=== PATIENT | female | born 1980 | race African-American/Black ===

== ENCOUNTER 2016-12-18 14:36 | Emergency (ER) | payer MEDICAID ==
[~2016-12-18] VITALS: Ht 170.2 cm; Wt 91.0 kg
[2016-12-18 14:38] VITALS: BP 156/62
== END 2016-12-18 19:30 | disposition left against medical advice (07) ==
LOC: ER 14:36
DX: F41.0 Panic disorder [episodic paroxysmal anxiety] (principal); Z53.21 Procedure and treatment not carried out due to patient leaving prior to being seen by health care provider

== ENCOUNTER 2019-04-06 02:05 | Emergency (ER) | payer SELFPAY ==
[~2019-04-06] VITALS: Ht 167.6 cm; Wt 87.0 kg
[2019-04-06] MEDS ORDERED: SODIUM CHLORIDE 0.9% 1,000 ML IV ONE (03:11)
[2019-04-06] MEDS ORDERED: ONDANSETRON HCL 4MG/2ML INJ IV ONE (03:15)
[2019-04-06] MEDS ORDERED: MORPHINE SULFATE 4 MG/ML CPJ (NOT FOR IM USE) IV ONE (03:15)
[2019-04-06 03:49] LABS: BASOPHILS % 0.4 % (0.0-2.0); EOSINOPHILS % 0.3 % (0.0-5.0); HEMATOCRIT. 30.9 % (36.0-48.0); HEMOGLOBIN. 9.6 g/dL (12.0-16.0); LYMPHOCYTES % 8.9 % (20.0-50.0); MEAN CORPUSCULAR HEMOGLOBIN 21.4 pg (28.0-32.0); MEAN CORPUSCULAR VOLUME 69.3 fL (81.0-99.0); MEAN PLATELET VOLUME 8.5 fl (7.4-10.4); MONOCYTES % 3.8 % (2.0-8.0); NEUTROPHILS % 86.6 % (40.0-76.0); PLATELET 392 x1000/uL (130-400); RED BLOOD CELL COUNT 4.46 mill/uL (4.2-5.4)
[2019-04-06 03:51] LABS: PLATELET ESTIMATE NORMAL
[2019-04-06 04:05] LABS: CHLORIDE 96 mEq/L (98-107)
[2019-04-06 04:30] VITALS: BP 136/75
== END 2019-04-06 05:59 | disposition left against medical advice (07) ==
LOC: ER 02:05
DX: D25.9 Leiomyoma of uterus, unspecified (principal)
CPT/HCPCS: 36415; 74177; 76856; 80053; 81025; 85025; 85610; 86850; 86900; 86901; 96374; 96375; 99284; J2270; J2405; J7030

== ENCOUNTER 2023-07-07 13:16 | Emergency (ER) | payer MEDICAID, OTHER ==
[~2023-07-07] VITALS: Ht 167.6 cm; Wt 91.0 kg
[2023-07-07 13:27] VITALS: O2SAT 99
[2023-07-07] MEDS ORDERED: IPRATROPIUM BROMIDE (0.02%) 0.5MG/2.5ML NEB HHN STA ×3 (14:05→14:06)
[2023-07-07] MEDS ORDERED: PREDNISONE 20MG TABLET PO STA (14:05)
[2023-07-07] MEDS ORDERED: ALBUTEROL (0.083%) 2.5MG/3ML NEB HHN STA ×3 (14:05→14:06)
[2023-07-07] MEDS ORDERED: POLYVINYL ALCOHOL OPHTH DROPS 15ML BOTHEYE SCH (15:30)
[2023-07-07] MEDS ORDERED: ALBU6.7H15 INH (16:41)
[2023-07-07] MEDS ORDERED: P50 MT (16:41)
[2023-07-07] MEDS ORDERED: ALBUTEROL (0.083%) 2.5MG/3ML NEB HHN NR (17:45)
[2023-07-07] MEDS ORDERED: PREDNISONE 20MG TABLET PO NR (17:45)
[2023-07-07] MEDS ORDERED: IPRATROPIUM BROMIDE (0.02%) 0.5MG/2.5ML NEB HHN NR (17:45)
[2023-07-07 19:50] VITALS: BP 118/78; PULSE 92; RESP 16; TEMP 98.5
== END 2023-07-07 19:52 | disposition home or self-care (01) ==
LOC: ER 13:53
DX: J45.901 Unspecified asthma with (acute) exacerbation (principal); I10 Essential (primary) hypertension; Z98.890 Other specified postprocedural states
CPT/HCPCS: 99285; J7512

== ENCOUNTER 2024-07-01 07:08 | Emergency (ER) | payer OTHER ==
[~2024-07-01] VITALS: Ht 167.6 cm; Wt 102.0 kg
[~2024-07-01 07:08] MED LIST: ALBU6.7H15 INH; ALBU90AE INH; NAPR-1176 MT; P50 MT
[2024-07-01 07:10] VITALS: O2SAT 100
[2024-07-01 08:00] VITALS: PULSE 77; RESP 16; TEMP 36.8; O2SAT 100
[2024-07-01] MEDS: ASPIRIN 81MG TABLET PO NR (08:08)
[2024-07-01] MEDS: CLOPIDOGREL 75MG TABLET PO NR (08:08)
[2024-07-01 08:15] VITALS: BP 214/122
[2024-07-01] MEDS: LABETALOL 5MG/ML 4ML INJ IV NR (08:15)
[2024-07-01 08:40] LABS: BASOPHILS % 0.8 % (0.0-2.0); EOSINOPHILS % 1.2 % (0.0-5.0); HEMOGLOBIN. 11.6 g/dL (12.0-16.0); LYMPHOCYTES % 33.1 % (20.0-50.0); MEAN CORPUSCULAR HEMOGLOBIN 32.1 pg (28.0-32.0); MEAN CORPUSCULAR HGB CONC 34.2 g/dL (31.0-37.0); MEAN CORPUSCULAR VOLUME 93.9 fL (81.0-99.0); MEAN PLATELET VOLUME 8.2 fl (7.4-10.4); MONOCYTES % 5.4 % (2.0-8.0); NEUTROPHILS % 59.5 % (40.0-76.0); PLATELET 331 x1000/uL (130-400); RED BLOOD CELL COUNT 3.62 mill/uL (4.2-5.4); RED CELL DISTRIBUTION WIDTH 13.6 % (11.6-14.6); WHITE BLOOD COUNT 8.1 x1000/uL (4.5-11.0)
[2024-07-01 08:47] LABS: CARBON DIOXIDE 27 mEq/L (21-32); CHLORIDE 105 mEq/L (98-107); HCG SCREEN NEGATIVE; POTASSIUM 3.3 mEq/L (3.5-5.1); SODIUM 140 mEq/L (136-145)
[2024-07-01 08:48] LABS: CALCIUM 9.4 mg/dL (8.7-10.4)
[2024-07-01] MEDS: IOHEXOL-350 100 ML BOTTLE ONE (08:50)
[2024-07-01 08:52] LABS: INR 0.9; PROTHROMBIN TIME 10.4 sec (9.6-11.0)
[2024-07-01 08:53] LABS: CREATININE 0.9 mg/dL (0.6-1.0); ETHANOL BLOOD < 10 mg/dL (<10); GLUCOSE 117 mg/dL (70-105); UREA NITROGEN BLOOD 13 mg/dL (9-23)
[2024-07-01 08:54] LABS: TROPONIN I HIGH SENSITIVITY 497 ng/L (3.0-34)
[2024-07-01] MEDS: MORPHINE SULFATE 4 MG/ML INJ (FOR IV/IM USE) IV ONE (10:32)
[2024-07-01] MEDS: NITROGLYCERIN 0.4MG TABLET SL SL ONE (10:33)
[2024-07-01] MEDS: POTASSIUM CHLORIDE 20MEQ TABLET SR PO NR (10:33)
[2024-07-01 10:50] LABS: CLARITY URINE CLEAR (CLEAR); COLOR URINE YELLOW (YELLOW); GLUCOSE URINE NEGATIVE (NEGATIVE); KETONES URINE NEGATIVE (NEGATIVE); LEUKOCYTE ESTERASE URINE NEGATIVE (NEGATIVE); NITRITE URINE NEGATIVE (NEGATIVE); OCCULT BLOOD URINE 3+ (NEGATIVE); PROTEIN URINE TRACE (NEGATIVE); SPECIFIC GRAVITY URINE 1.037 (1.005-1.030); UROBILINOGEN URINE 0.2 E.U./dL (0.2-1.0)
[2024-07-01 10:52] LABS: TROPONIN I HIGH SENSITIVITY 337 ng/L (3.0-34)
[2024-07-01 11:15] LABS: BACTERIA URINE FEW; RBC URINE 0-2 /hpf (0-2); SQUAMOUS EPITHELIAL CELL URINE FEW /lpf (RARE/1+); WBC URINE 0-2 /hpf (0-2); YEAST URINE NONE SEEN
[2024-07-01 11:26] LABS: *AMPHETAMINES SCREEN URINE PRESUMPTIVE POSITIVE (NEGATIVE); *BENZODIAZEPINES SCREEN URINE NEGATIVE (NEGATIVE)
[2024-07-01 11:27] LABS: *BARBITURATES SCREEN URINE NEGATIVE (NEGATIVE); *COCAINE SCREEN URINE NEGATIVE (NEGATIVE); CANNABINOID URINE SCREEN NEGATIVE (NEGATIVE); ECSTASY MDMA SCREEN URINE NEGATIVE (NEGATIVE); METHADONE URINE SCREEN NEGATIVE (NEGATIVE); OPIATES URINE SCREEN NEGATIVE (NEGATIVE); PHENCYCLIDINE URINE SCREEN PRESUMTIVE POSITIVE (NEGATIVE)
[2024-07-01] MEDS ORDERED: NITROGLYCERIN 50MG PREMIX 250 ML IV ONE (11:45)
[2024-07-01] MEDS ORDERED: LORAZEPAM 2MG/ML INJ IV ONE (11:45)
[2024-07-01] MEDS ORDERED: NITROGLYCERIN 50 MG in DEXT 5% WATER 240 ML IV PRN (12:00)
== END 2024-07-01 11:49 | disposition left against medical advice (07) ==
LOC: ER 07:08
DX: I21.3 ST elevation (STEMI) myocardial infarction of unspecified site (principal); I10 Essential (primary) hypertension; F17.200 Nicotine dependence, unspecified, uncomplicated; F12.10 Cannabis abuse, uncomplicated
CPT/HCPCS: 80305; 80048; 81003; 80320; 82962; 84703; 85025; 85610; 84484; 36415; 71045; 70496; 70498; 70450; 93005; 96374; 99291; Q9967; Z7610; J3490; J2270; G0480

== ENCOUNTER 2024-10-29 09:17 | Emergency (ER) | payer OTHER ==
[~2024-10-29] VITALS: Ht 167.6 cm; Wt 100.0 kg
[~2024-10-29 09:17] MED LIST changes: +AMLO5TAB88; +AMLO5TAB88 MT; +ASPI-1160; +ASPI-1497 MT; +LIP40 MT
[2024-10-29 09:24] VITALS: O2SAT 100
[2024-10-29] MEDS: ACETAMINOPHEN 325MG TABLET PO ONE (10:11)
[2024-10-29 10:16] LABS: HCG SCREEN NEGATIVE
[2024-10-29] MEDS: KETOROLAC 15MG/ML VIAL IM ONE (10:25)
[2024-10-29 12:20] VITALS: BP 162/86; PULSE 80; RESP 14; TEMP 36.7; O2SAT 100
== END 2024-10-29 12:24 | disposition home or self-care (01) ==
LOC: ER 09:17
DX: R51.9 Headache, unspecified (principal); R10.84 Generalized abdominal pain; I10 Essential (primary) hypertension; Z86.73 Personal history of transient ischemic attack (TIA), and cerebral infarction without residual deficits; Z79.899 Other long term (current) drug therapy
CPT/HCPCS: 99285; 70450; 84703; 96372; J1885

== ENCOUNTER 2024-12-20 05:09 | Emergency (ER) | payer OTHER ==
[~2024-12-20] VITALS: Ht 167.6 cm; Wt 82.0 kg
[~2024-12-20 05:09] MED LIST changes: +ACET-2708 MT; -ALBU6.7H15 INH; -ALBU90AE INH; -AMLO5TAB88 MT; -ASPI-1497 MT; +BACL-141 MT; +DICL50TA9 PO; -LIP40 MT; +METH-773 PO; -NAPR-1176 MT; -P50 MT
[2024-12-20 05:15] VITALS: BP 170/84; PULSE 72; RESP 16; TEMP 36.9; O2SAT 100
[2024-12-20] MEDS ORDERED: TOPUD PO (05:23)
[2024-12-20] MEDS ORDERED: ACETAMINOPHEN 325MG TABLET PO ONE (05:30)
== END 2024-12-20 05:25 | disposition home or self-care (01) ==
LOC: ER 05:09
DX: S00.83XA Contusion of other part of head, initial encounter (principal); I10 Essential (primary) hypertension; R79.1 Abnormal coagulation profile; Z79.82 Long term (current) use of aspirin; F19.90 Other psychoactive substance use, unspecified, uncomplicated
CPT/HCPCS: 99283

== ENCOUNTER 2025-01-21 13:18 | Emergency (ER) | payer OTHER ==
[~2025-01-21] VITALS: Ht 167.6 cm; Wt 86.0 kg
[~2025-01-21 13:18] MED LIST changes: +TOPUD PO
[2025-01-21 13:20] VITALS: O2SAT 98
[2025-01-21] MEDS ORDERED: AMLO10TA80 MT (14:29)
[2025-01-21] MEDS: AMLODIPINE 10MG TABLET PO ONE (14:37)
[2025-01-21 15:01] VITALS: BP 189/108; PULSE 71; RESP 16; TEMP 36.8; O2SAT 99
== END 2025-01-21 15:07 | disposition home or self-care (01) ==
LOC: ER 13:18
DX: I10 Essential (primary) hypertension (principal); F15.90 Other stimulant use, unspecified, uncomplicated; R60.9 Edema, unspecified; Z79.899 Other long term (current) drug therapy; Z79.82 Long term (current) use of aspirin; Y04.0XXA Assault by unarmed brawl or fight, initial encounter; Y93.89 Activity, other specified; Y92.89 Other specified places as the place of occurrence of the external cause; Y99.8 Other external cause status
CPT/HCPCS: 99283

== ENCOUNTER 2025-02-08 08:37 | Emergency (ER) | payer OTHER ==
[~2025-02-08] VITALS: Ht 172.7 cm; Wt 85.0 kg
[~2025-02-08 08:37] MED LIST changes: +AMLO10TA80 MT
[2025-02-08 08:39] VITALS: O2SAT 100
[2025-02-08] MEDS: ACETAMINOPHEN 325MG TABLET PO ONE (09:01)
[2025-02-08] MEDS: AMLODIPINE 10MG TABLET PO ONE (11:15)
[2025-02-08 12:45] VITALS: BP 147/94; PULSE 82; RESP 14; TEMP 37; O2SAT 100
== END 2025-02-08 12:49 | disposition home or self-care (01) ==
LOC: ER 08:39
DX: S09.90XA Unspecified injury of head, initial encounter (principal); I10 Essential (primary) hypertension; M79.602 Pain in left arm; F15.90 Other stimulant use, unspecified, uncomplicated; Z79.899 Other long term (current) drug therapy; Z79.82 Long term (current) use of aspirin; Y04.0XXA Assault by unarmed brawl or fight, initial encounter; Y93.89 Activity, other specified; Y92.89 Other specified places as the place of occurrence of the external cause; Y99.8 Other external cause status
CPT/HCPCS: 73030; 73070; 73110; 73130; 81025; 99284

== ENCOUNTER 2025-02-23 18:43 | Emergency (ER) | payer OTHER ==
[~2025-02-23] VITALS: Ht 167.6 cm; Wt 90.0 kg
[2025-02-23 18:56] VITALS: BP 168/88; PULSE 84; RESP 18; TEMP 37; O2SAT 99
== END 2025-02-23 22:18 | disposition left against medical advice (07) ==
LOC: ER 18:43
DX: I10 Essential (primary) hypertension (principal); Z53.21 Procedure and treatment not carried out due to patient leaving prior to being seen by health care provider

== ENCOUNTER 2025-03-14 04:12 | Emergency (ER) | payer OTHER ==
[~2025-03-14] VITALS: Ht 172.7 cm; Wt 77.0 kg
[2025-03-14 04:23] VITALS: BP 150/84; PULSE 74; RESP 18; TEMP 36.9; O2SAT 100
[2025-03-14 05:16] LABS: BASOPHILS % 1.0 % (0.0-2.0); EOSINOPHILS % 2.2 % (0.0-5.0); HEMATOCRIT. 33.5 % (36.0-48.0); HEMOGLOBIN. 10.9 g/dL (12.0-16.0); LYMPHOCYTES % 38.4 % (20.0-50.0); MEAN PLATELET VOLUME 7.8 fl (7.4-10.4); MONOCYTES % 8.2 % (2.0-8.0); NEUTROPHILS % 50.2 % (40.0-76.0); PLATELET 331 x1000/uL (130-400); RED BLOOD CELL COUNT 3.85 mill/uL (4.2-5.4); RED CELL DISTRIBUTION WIDTH 18.1 % (11.6-14.6)
[2025-03-14 05:28] LABS: CREATININE 0.8 mg/dL (0.6-1.0)
[2025-03-14 05:29] LABS: UREA NITROGEN BLOOD 16 mg/dL (9-23)
[2025-03-14 05:51] LABS: HCG SCREEN NEGATIVE
[2025-03-14] MEDS: ONDANSETRON HCL 4MG/2ML INJ IV ONE (08:27)
[2025-03-14] MEDS: SODIUM CHLORIDE 0.9% 1,000 ML IV ONE (08:27)
[2025-03-14] MEDS ORDERED: HYDR50TA54 MT (11:10)
== END 2025-03-14 11:25 | disposition home or self-care (01) ==
LOC: ER 04:12
DX: F41.0 Panic disorder [episodic paroxysmal anxiety] (principal); I10 Essential (primary) hypertension; J45.909 Unspecified asthma, uncomplicated; D64.9 Anemia, unspecified; R51.9 Headache, unspecified; Z86.73 Personal history of transient ischemic attack (TIA), and cerebral infarction without residual deficits
CPT/HCPCS: 80048; 84703; 85025; 36415; 70450; 93005; 96360; 99284; J2405; J7030; Z7610 ×3

== ENCOUNTER 2025-04-14 10:33 | Emergency (ER) | payer OTHER ==
[~2025-04-14] VITALS: Ht 172.7 cm; Wt 81.0 kg
[~2025-04-14 10:33] MED LIST changes: +HYDR50TA54 MT
[2025-04-14 10:36] VITALS: BP 131/83; PULSE 91; RESP 16; O2SAT 100
[2025-04-14 11:48] VITALS: TEMP 98.8
[2025-04-14] MEDS: ACETAMINOPHEN 325MG TABLET PO ONE (11:48)
[2025-04-14] MEDS ORDERED: TOPUD MT (13:31)
[2025-04-14] MEDS ORDERED: BENZ100C86 MT (13:31)
[2025-04-14] MEDS ORDERED: SULF1TAB48 MT (13:33)
[2025-04-14 15:27] LABS: HCG SCREEN NEGATIVE
== END 2025-04-14 11:52 | disposition home or self-care (01) ==
LOC: ER 10:33
DX: R51.9 Headache, unspecified (principal); R05.9 Cough, unspecified; F15.90 Other stimulant use, unspecified, uncomplicated; Z59.00 Homelessness unspecified; Z79.82 Long term (current) use of aspirin; Z79.899 Other long term (current) drug therapy
CPT/HCPCS: 71045; 84703; 99284

== ENCOUNTER 2025-04-17 15:29 | Emergency (ER) | payer MEDICAID, OTHER ==
[~2025-04-17] VITALS: Ht 167.6 cm; Wt 100.0 kg
[~2025-04-17 15:29] MED LIST changes: +BENZ100C86 MT; +SULF1TAB48 MT; +TOPUD MT
[2025-04-17 15:42] VITALS: O2SAT 99
[2025-04-17 16:58] LABS: BASOPHILS % 0.9 % (0.0-2.0); EOSINOPHILS % 1.5 % (0.0-5.0); HEMATOCRIT. 30.1 % (36.0-48.0); HEMOGLOBIN. 9.8 g/dL (12.0-16.0); LYMPHOCYTES % 29.0 % (20.0-50.0); MEAN PLATELET VOLUME 7.6 fl (7.4-10.4); MONOCYTES % 7.0 % (2.0-8.0); NEUTROPHILS % 61.6 % (40.0-76.0); PLATELET 321 x1000/uL (130-400); RED BLOOD CELL COUNT 3.46 mill/uL (4.2-5.4); RED CELL DISTRIBUTION WIDTH 16.8 % (11.6-14.6)
[2025-04-17 17:11] LABS: CREATININE 1.0 mg/dL (0.6-1.0); ETHANOL BLOOD < 10 mg/dL (<10); UREA NITROGEN BLOOD 8 mg/dL (9-23)
[2025-04-17 17:42] LABS: HCG SCREEN NEGATIVE
[2025-04-17] MEDS: CEPHALEXIN 250MG CAPSULE PO ONE (18:12)
[2025-04-17 18:24] LABS: *AMPHETAMINES SCREEN URINE PRESUMPTIVE POSITIVE (NEGATIVE); *BARBITURATES SCREEN URINE NEGATIVE (NEGATIVE); *BENZODIAZEPINES SCREEN URINE NEGATIVE (NEGATIVE); *COCAINE SCREEN URINE NEGATIVE (NEGATIVE); CANNABINOID URINE SCREEN NEGATIVE (NEGATIVE); ECSTASY MDMA SCREEN URINE NEGATIVE (NEGATIVE); METHADONE URINE SCREEN NEGATIVE (NEGATIVE); OPIATES URINE SCREEN NEGATIVE (NEGATIVE); PHENCYCLIDINE URINE SCREEN PRESUMTIVE POSITIVE (NEGATIVE)
[2025-04-17 19:32] LABS: CLARITY URINE CLOUDY (CLEAR); GLUCOSE URINE NEGATIVE (NEGATIVE); KETONES URINE TRACE (NEGATIVE); LEUKOCYTE ESTERASE URINE NEGATIVE (NEGATIVE); NITRITE URINE NEGATIVE (NEGATIVE); OCCULT BLOOD URINE NEGATIVE (NEGATIVE); PH URINE 7.5 (4.5-8.0); PROTEIN URINE 1+ (NEGATIVE); SPECIFIC GRAVITY URINE 1.020 (1.005-1.030); UROBILINOGEN URINE 1.0 E.U./dL (0.2-1.0)
[2025-04-17 20:05] LABS: COLOR URINE STRAW (YELLOW)
[2025-04-17 20:06] LABS: RBC URINE NONE SEEN /hpf (0-2); SQUAMOUS EPITHELIAL CELL URINE 3+ /lpf (RARE/1+); WBC URINE 0-2 /hpf (0-2)
[2025-04-17 20:07] LABS: BACTERIA URINE TRACE
[2025-04-17 20:08] LABS: MUCUS URINE TRACE /lpf (< = 2+)
[2025-04-17] MEDS: POTASSIUM CHLORIDE 20MEQ/PACKET PO ONE (20:47)
[2025-04-18 15:57] VITALS: BP 153/92; PULSE 84; RESP 18; TEMP 37; O2SAT 100
== END 2025-04-18 16:19 ==
LOC: ER 15:29
DX: T23.002A Burn of unspecified degree of left hand, unspecified site, initial encounter (principal); T31.0 Burns involving less than 10% of body surface; F20.9 Schizophrenia, unspecified; I10 Essential (primary) hypertension; Z59.00 Homelessness unspecified; Z79.82 Long term (current) use of aspirin; Y04.0XXA Assault by unarmed brawl or fight, initial encounter; Y93.89 Activity, other specified; Y92.89 Other specified places as the place of occurrence of the external cause; Y99.8 Other external cause status
CPT/HCPCS: 36415; 80048; 80305; 80307; 80320; 80329; 81003; 84703; 85025; 87426; 99285; G0480